=== PATIENT | male | born 1995 | race Caucasian/White ===

== ENCOUNTER 2016-07-03 18:23 | Emergency (ER) | payer OTHER ==
[~2016-07-03] VITALS: Ht 180.3 cm; Wt 74.8 kg
[2016-07-03 18:28] VITALS: BP 127/71
--- NOTE | 2016-07-03 18:52 | RADIOLOGY REPORT ---
EXAMINATION: XR FINGER, RIGHT CLINICAL INFORMATION: Trauma. COMPARISON: None TECHNIQUE: Three views of the right second digit. FINDINGS: No acute fracture or dislocation is identified. Bony mineralization is normal. The joint spaces are normally maintained. The soft tissues are unremarkable. IMPRESSION: No acute osseous traumatic findings.
--- NOTE | 2016-07-03 19:24 | ED HAND/WRIST INJURY COMPLAINT ---
History of Present Illness General Chief Complaint: Lower Extremity Injury Stated Complaint: "PER PT RT POINTER FINGER INJURED PLAYING B-BALL" Source: patient Exam Limitations: no limitations Vital Signs & Intake/Output Vital Signs & Intake/Output Vital Signs Date Time Temp Pulse Resp B/P B/P Pulse O2 O2 Flow FiO2 Mean Ox Delivery Rate 07/03 1828 97.4 72 20 127/71 100 Room Air Allergies Coded Allergies: No Known Allergies (08/18/15) Reconcile Medications No Known Home Medications Triage Note: PT TO ED C/O RIGHT HAND INDEX FINGER/KNUCKLE PAIN S/P PLAYING BASKETBALL TODAY. "I JAMMED IT". MEDICATED WITH MOTRIN IN TRIAGE. Triage Nurses Notes Reviewed? yes Occurred: this afternoon Duration: minute(s):, constant, continues in ED Timing: single episode today Severity: moderate Pain/Injury Location: Right: 2nd finger. Modifying Factors: Worsens With: movement. HPI: Patient presents for evaluation of a right index finger injury after striking his right hand against the forearm of a van helper. Past History Travel History Traveled to [facility] past 21 day No Medical History Any Pertinent Medical History? see below for history Neurological: NONE EENT: NONE Cardiovascular: NONE Respiratory: NONE Gastrointestinal: NONE Hepatic: NONE Renal: NONE Musculoskeletal: NONE Psychiatric: NONE Endocrine: NONE Blood Disorders: NONE Cancer(s): NONE SUPPORT REPRESENTATIVE/Reproductive: NONE Surgical History Surgical History: non-contributory Psychosocial History What is your primary language [place] Tobacco Use: Never used ETOH Use: denies use Illicit Drug Use: denies illicit drug use Family History Hx Contributory? No Review of Systems Review of Systems Constitutional: Reports: no symptoms. EENTM: Reports: no symptoms. Respiratory: Reports: no symptoms. Cardiovascular: Reports: no symptoms. GI: Reports: no symptoms. Genitourinary: Reports: no symptoms. Musculoskeletal: Reports: see HPI. Skin: Reports: no symptoms. Neurological/Psychological: Reports: no symptoms. Hematologic/Endocrine: Reports: no symptoms. Immunologic/Allergic: Reports: no symptoms. All Other Systems: Reviewed and Negative Physical Exam Physical Exam Hand Left: normal inspection Hand Right: see below Comments: Gen.: Well-nourished, well-developed, no acute respiratory distress. Head: Normocephalic, atraumatic. Eyes: Normal inspection bilaterally Ears: Normal inspection bilaterally Nose: Normal inspection, nasal cannula in place Throat/mouth : Moist mucosa Neck: Supple, full range of motion, no goiter Heart: Regular rate and rhythm Lungs: Quiet respirations Back: Normal range of motion Extremities: Right hand: Mild swelling of the second metacarpal phalangeal joint with tenderness and slight decreased range of motion. No ecchymoses noted. The right index finger is neurovascularly intact. Neurologic: Cranial nerves grossly intact, speech is clear Skin: warm and dry Psychiatric: Calm, cooperative, no apparent delusions or hallucinations Progress Differential Diagnosis: fracture, sprain Plan of Care: see discharge instructions Diagnostic Imaging: Discussed w/RAD: Radiology Read. Radiology Impression: PATIENT: AMINAH MCNEILL PRESENT AGE: 20 PATIENT ACCOUNT NO: [id number] : 96 LOCATION: [facility] ORDERING PHYSICIAN: ANGEL CHARLES SERVICE DATE: 07/03/16 EXAM TYPE: RAD - XRY-FINGERS, RIGHT EXAMINATION: XR FINGER, RIGHT CLINICAL INFORMATION: Trauma. COMPARISON: None TECHNIQUE: Three views of the right second digit. FINDINGS: No acute fracture or dislocation is identified. Bony mineralization is normal. The joint spaces are normally maintained. The soft tissues are unremarkable. IMPRESSION: No acute osseous traumatic findings. DICTATED BY: FELICIANO NATION MD DATE/TIME DICTATED:07/03/161846 WIRELESS TEAM MEMBER:DEANN DATE/TIME TRANSCRIBED:07/03/161846 CONFIDENTIAL, DO NOT COPY WITHOUT APPROPRIATE AUTHORIZATION. <Electronically signed in Other Vendor System> SIGNED BY: FELICIANO NATION MD 07/03/161851 Departure Departure Disposition: HOME OR SELF CARE Condition: Stable Clinical Impression Primary Impression: Finger sprain Qualifiers: Encounter type: initial encounter Finger: index finger Sprain of finger site: other site Laterality: right Qualified Code: S63.690A - Other sprain of right index finger, initial encounter Referrals: PATIENT HAS NO PRIMARY CARE DR (PCP/Family) Additional Instructions: Ice and elevation over the next 24-48 hours. Ibuprofen 600 mg every 6 hours as needed for pain. Follow-up with your primary care doctor in one week if not improving. Return if any concerns or sudden worsening. Please note that there might be incidental findings in your evaluation that are unrelated to the current emergency department visit. Please notify your primary care doctor about this emergency department visit in order to obtain and review all of the testing performed so that these incidental findings can be monitored as needed. If you had an x-ray performed, please understand that some fractures may not be seen on the initial set of x-rays. If your symptoms persist you might need a repeat set of x-rays to check for such a fracture. If you had a laceration evaluated, please understand that foreign bodies such as glass or wood may not be visible to the naked eye or on plain x-rays. If the wound becomes red, swollen, increasingly more painful or if there is any drainage from the wound, please have it reevaluated by a physician for the possibility of a retained foreign body. Thank you for choosing the [facility] Emergency Department for your care. It was a pleasure to serve you today. Lee Gutierrez M.D. [facility] Departure Forms: Customer Survey General Discharge Information RELEASE- WORK Prescriptions: Current Visit Scripts No Known Home Medications Procedures Splinting Location: right index finger Manual Alignment Performed: No Pre-Made Type: metal Splint: volar Splint Applied By: splint applied by me Pre-Proc Neuro Vasc Exam: normal Post-Proc Neuro Vasc Exam: normal
== END 2016-07-03 19:58 ==
LOC: ERH 18:23
DX: S63.610A Unspecified sprain of right index finger, initial encounter (principal); W51.XXXA Accidental striking against or bumped into by another person, initial encounter; Y93.67 Activity, basketball; Y92.9 Unspecified place or not applicable
CPT/HCPCS: 73140-RT